=== PATIENT | female | born 1980 | race Caucasian/White ===

== ENCOUNTER 2016-05-03 19:03 | Emergency (ER) | payer OTHER ==
[~2016-05-03] VITALS: Ht 152.4 cm; Wt 61.9 kg
[2016-05-03 19:29] VITALS: BP 136/97
[2016-05-03] MEDS ORDERED: AMOXICILLIN500 MG PO (22:54)
== END 2016-05-03 23:08 | disposition home or self-care (01) ==
LOC: EME 19:03
DX: S02.82XA Fracture of other specified skull and facial bones, left side, initial encounter for closed fracture (principal); Y04.2XXA Assault by strike against or bumped into by another person, initial encounter; Z87.891 Personal history of nicotine dependence
CPT/HCPCS: 70486; 99281; 99284